=== PATIENT | male | born 1975 | race Caucasian/White ===

== ENCOUNTER 2018-05-07 16:34 | Emergency (ER) | payer SELFPAY ==
--- NOTE | 2018-05-07 17:04 | UC ---
General HPI - HPI Summary HPI Summary: pt states he was working on a [employer] this past monday when his R hand slipped off a wrench and he hit it on something causing a small cut. he used otc quinones glue and states the site was fine until today, when it began to swell and turn sore. he notes a little puss comes out the cut. he denies any fever, chills and FB sensation. last tetanus is not known. he denies any limited function in the hand. - History of Current Complaint Chief Complaint: Tariq Stated Complaint: INFECTED CUT ON RT HAND Time Seen by Provider: 05/07/18 16:53 Hx Obtained From: Patient Pain Intensity: 8 Associated Signs & Symptoms: Negative: Fever - Allergy/Home Medications Allergies/Adverse Reactions: Allergies Allergy/AdvReac Type Severity Reaction Status Date / Time No Known Allergies Allergy Verified 05/07/18 16:49 PMH/Surg Hx/FS Hx/Imm Hx Cardiovascular History: Hypertension - not txing - Surgical History Surgical History: None - Family History Known Family History: Positive: Non-Contributory - Social History Alcohol Use: Rare Substance Use Type: None Smoking Status (MU): Current Every Day Smoker Type: Cigarettes Amount Used/How Often: 1/2 ppd Length of Time of Smoking/Using Tobacco: 15 yrs Have You Smoked in the Last Year: Yes - Immunization History Hx Tetanus, Diphtheria Vaccination: No Review of Systems All Other Systems Reviewed And Are Negative: Yes Constitutional: Positive: Negative Skin: Positive: Other - R dorsal hand swelling and drainage. Eyes: Negative: Blurred Vision ENT: Positive: Negative Respiratory: Negative: Shortness Of Breath Cardiovascular: Negative: Palpitations, Chest Pain Gastrointestinal: Positive: Negative Genitourinary: Positive: Negative Motor: Positive: Negative Neurovascular: Negative: Decreased Sensation Musculoskeletal: Positive: Negative Neurological: Negative: Headache, Weakness, Paresthesia, Numbness Psychological: Positive: Negative Is Patient Immunocompromised?: No Physical Exam Triage Information Reviewed: Yes Appearance: Well-Appearing Vital Signs: Initial Vital Signs Temp 98.9 F 05/07/18 16:50 Pulse 85 05/07/18 16:50 Resp 15 05/07/18 16:50 BP 178/121 05/07/18 16:50 Pulse Ox 99 05/07/18 16:50 Vital Signs Reviewed: Yes Eyes: Positive: Conjunctiva Clear ENT: Positive: Normal ENT inspection Neck: Positive: Supple, Nontender, No Lymphadenopathy Respiratory: Positive: Lungs clear, Normal breath sounds Cardiovascular: Positive: RRR, No Murmur Abdomen Description: Positive: Nontender, No Organomegaly, Soft Bowel Sounds: Positive: Present Musculoskeletal: Positive: Other: - RUE= no epitrochlear adenopathy or streaking. the shoulder, elbow, forearm and wrist are unremarkable. the dorsal hand has mild to moderate swelling and tenderness with a central 3mm cut and abrasion. no glue remains. there is scant clear fluid with a hint or puss from the cut when pt makes a fist and pressure is applied to edges of wound. culture obtained. the hand has full s/v/m function. Neurological: Positive: Other: - A&O x3. cn 2-12 grossly intact. Normal gait. Psychological: Positive: Age Appropriate Behavior Skin Exam: Normal Course/Dx - Course Course Of Treatment: R hand infection. Pt refused xray citing no concern for fb/ other pathology. R hand soaked in warm water with dilute betadine by myself then nursing applied antibiotic ointment and small dressing. hx htn. pt has opted not to tx until gets insurance again. advised of risk for cva, renal dz and cad from chronic htn and vascular damage. still declining tx. states will get insurance in 2 weeks then will go back to his pcp for tx of his BP. he denies any ZHOU, CP sob, neurologic complaints thus no concern for hypertensive emergency. pt is a&o x 3 and is able to make decisions thus I must respect his wishes - Differential Dx - Multi-Symptom Differential Diagnoses: Other - no concern for tenosynovitis or septic joint at this time. unable to exclude fx, gas and fb because pt refused an xray. - Diagnoses Provider Diagnosis: Cellulitis of hand, right Discharge - Sign-Out/Discharge Documenting (check all that apply): Patient Departure All imaging exams completed and their final reports reviewed: No Studies - Discharge Plan Condition: Stable Disposition: HOME Prescriptions: Cephalexin CAP* [Keflex CAP*] 500 mg PO TID 10 Days #30 cap Patient Education Materials: Cellulitis (DC), Hypertension (ED) Referrals: Jose Sims MD [Medical Doctor] - As Soon As Possible Angie Mares MD [Medical Doctor] - 2 Days Additional Instructions: FOLLOW UP WITH PRIMARY CARE SOON POSSIBLE FOR BP TREATMENT. FOLLOW UP DR MARES IN 2 DAYS FOR A RECHECK OF HAND INFECTION. GO TO ER IMMEDIATELY FOR ANY WORSENING. - Billing Disposition and Condition Condition: STABLE Disposition: Home
[2018-05-07] MEDS ORDERED: cefTRIAXone VIAL(*) 1,000 MG VIAL IM ONE (17:08)
[2018-05-07] MEDS ORDERED: Lidocaine 1%* 5 ML VIAL INJ ONE (17:09)
[2018-05-07] MEDS ORDERED: Tetan/Diph/Pertus SYR(Tdap)* 0.5 ML SYR(BOOSTRIX) use SYR IM ONE (17:09)
[2018-05-07 17:28] VITALS: BP 169/113
== END 2018-05-07 17:53 | disposition home or self-care (01) ==
LOC: UCCORT 16:34
DX: L03.113 Cellulitis of right upper limb (principal); B95.61 Methicillin susceptible Staphylococcus aureus infection as the cause of diseases classified elsewhere; F17.210 Nicotine dependence, cigarettes, uncomplicated
CPT/HCPCS: 87070; 87205; 87640; 87641; 90471; 90715; 96372; 99202; G0463; J0696